=== PATIENT | male | born 1985 | race Caucasian/White ===

== ENCOUNTER 2017-02-28 16:24 | Emergency (ER) | payer BC, OTHER ==
[~2017-02-28] VITALS: Ht 188 cm; Wt 78.0 kg
[2017-02-28] MEDS ORDERED: AMPICILLIN/SULBACTAM 3 GM in SODIUM CHLORIDE 0.9% 100 ML IVPB ONE (17:00)
[2017-02-28] MEDS ORDERED: SODIUM CHLORIDE 0.9% 1,000ML IVBOLUS ONE (17:00)
[2017-02-28 17:22] LABS: BLOOD UREA NITROGEN 11 mg/dL (7-18)
[2017-02-28 17:31] VITALS: BP 112/65
[2017-02-28] MEDS ORDERED: ALBUTEROL/IPRATROPIUM 2.5MG/0.5MG, 3 ML ONE (19:00)
== END 2017-02-28 19:26 | disposition home or self-care (01) ==
LOC: ED 18:23
DX: L03.012 Cellulitis of left finger (principal); L04.2 Acute lymphadenitis of upper limb
CPT/HCPCS: 36415; 80048; 82040; 83605; 84145; 85025; 87040; 96365; 99284; J0295; J7030